=== PATIENT | female | born 1985 | race Caucasian/White ===

== ENCOUNTER 2023-06-05 23:33 | Emergency (ER) | payer MEDICAID ==
[2023-06-06 02:05] LABS: BASOPHILS # (AUTO) 0.1 10^3/uL (0.0-0.1); BASOPHILS % (AUTO) 1.1 %; EOSINOPHILS # (AUTO) 0.1 10^3/uL (0.0-0.7); EOSINOPHILS % (AUTO) 1.2 %; HCT - HEMATOCRIT 42.3 % (37.0-47.0); LYMPHOCYTES # (AUTO) 1.7 10^3/uL (1.5-3.5); LYMPHOCYTES % (AUTO) 25.8 %; MEAN CORPUSCULAR HEMOGLOBIN 32.2 pg (27.0-31.0); MEAN CORPUSCULAR HGB CONC 33.1 g/dL (32.0-36.0); MEAN CORPUSCULAR VOLUME 97.2 fL (81.0-99.0); MEAN PLATELET VOLUME 9.8 fL (7.9-10.8); MONOCYTES # (AUTO) 0.5 10^3/uL (0.0-1.0); MONOCYTES % (AUTO) 7.4 %; NEUTROPHILS # (AUTO) 4.2 10^3/uL (1.5-6.6); NEUTROPHILS % (AUTO) 64.3 %; PLT - PLATELET COUNT 203 10^3/uL (130-450); RED BLOOD COUNT 4.35 10^6/uL (4.20-5.40); RED CELL DISTRIBUTION WIDTH 11.9 % (12.0-15.0); WHITE BLOOD COUNT 6.5 x10^3/uL (4.8-10.8)
[2023-06-06 02:18] LABS: ALBUMIN 4.4 g/dL (3.2-5.5); ALBUMIN/GLOBULIN RATIO 1.6 (1.0-2.2); ALKALINE PHOSPHATASE 93 IU/L (42-121); ALT ALANINE AMINOTRANSFERASE 32 IU/L (10-60); AST ASPARTATE AMINOTRANSFERASE 22 IU/L (10-42); BILIRUBIN,TOTAL 0.3 mg/dL (0.2-1.0); BUN - BLOOD UREA NITROGEN 16 mg/dL (6-20); CALCIUM 9.7 mg/dL (8.5-10.3); CARBON DIOXIDE - CO2 24 mmol/L (21-32); CHLORIDE 107 mmol/L (101-111); CREATININE 0.7 mg/dL (0.6-1.3); GFR - MDRD 93 (>89); GLUCOSE 102 mg/dL (74-104); POTASSIUM 4.3 mmol/L (3.5-4.5); SODIUM 136 mmol/L (135-145); TOTAL PROTEIN 7.2 g/dL (6.4-8.9)
[2023-06-06 02:20] LABS: TROPONIN I HIGH SENSITIVITY < 2.3 ng/L (2.3-14.8)
[2023-06-06 03:36] VITALS: BP 144/96; O2SAT 99
--- NOTE | 2023-06-06 04:06 | ED Physician Documentation ---
PD HPI CHEST PAIN - Stated complaint Stated Complaint: L RIB PX - Chief complaint Chief Complaint: Cardiac - History obtained from History obtained from: Patient - Additional information Additional information: Patient is a 37-year-old female with no significant prior medical history presenting for evaluation of sharp pain in the left lower rib area that has been dull and constant for the past 4 days. She reports intermittently having some sharper jolts of pain but states that she has had some constant dullness there for 4 days. The pain does not radiate elsewhere. She also reports at times of feeling a discomfort of "bubbles" in her chest. She denies shortness of air. She denies worsening pain with taking deep breath or with exertion. She has not tried anything for her symptoms. She states that she has gotten away from a stressful situation and feels that her stress level is much better recently. Review of Systems Constitutional: denies: Fever Cardiac: reports: Chest pain / pressure Respiratory: denies: Dyspnea GI: denies: Abdominal Pain Musculoskeletal: denies: Extremity swelling PD PAST MEDICAL HISTORY - Past Medical History Past Medical History: No - Past Surgical History Past Surgical History: Yes General: Cholecystectomy, Hiatal hernia repair - Present Medications Home Medications: Ambulatory Orders Medication Instructions Recorded Confirmed hydrOXYzine HCL [Hydroxyzine HCl] 25 - 75 mg PO DAILY PRN 06/06/23 06/06/23 - Allergies Allergies/Adverse Reactions: Allergies Allergy/AdvReac Type Severity Reaction Status Date / Time metoclopramide [From Reglan] AdvReac Anxiety Verified 06/06/23 01:33 THC Allergy Anaphylaxis Uncoded 06/06/23 01:34 - Social History Does the pt smoke?: No Smoking Status: Never smoker Does the pt drink ETOH?: No ETOH Use: Wine Does the pt have substance abuse?: No - Immunizations Immunizations are current?: Yes - POLST Patient has POLST: No PD ED PE NORMAL - General General: Alert and oriented X 3, No acute distress, Well developed/nourished - HEENT HEENT: Atraumatic, Moist mucous membranes, Pharynx benign - Neck Neck: Supple, no meningeal sign - Cardiac Cardiac: RRR, No murmur, Strong equal pulses - Respiratory Respiratory: No respiratory distress, Clear bilaterally - Abdomen Abdomen: Soft, Non tender, Non distended - Derm Derm: Warm and dry - Extremities Extremities: No edema, No calf tenderness / cord - Neuro Neuro: Normal speech Results - Vitals Vitals: Vital Signs - 24 hr 06/06/23 06/06/23 01:24 03:29 Temperature 37.1 C 36.4 C L Heart Rate 76 78 Respiratory 18 16 Rate Blood Pressure 141/100 H 144/96 H O2 Saturation 98 99 Oxygen O2 Source Room air - EKG (time done) 0139 EKG releavant findings:: EKG personally interpreted by author of this note. Relevant findings are: Rate 79, normal sinus rhythm, no STEMI, no ST depressions - Labs Labs: Laboratory Tests 06/06/23 06/06/23 01:57 01:57 WBC 6.5 RBC 4.35 Hgb 14.0 Hct 42.3 MCV 97.2 MCH 32.2 H MCHC 33.1 RDW 11.9 L Plt Count 203 MPV 9.8 Neut # (Auto) 4.2 Lymph # (Auto) 1.7 [place] # (Auto) 0.5 Eos # (Auto) 0.1 Baso # (Auto) 0.1 Absolute Nucleated RBC 0.00 Nucleated RBC % 0.0 Sodium 136 Potassium 4.3 Chloride 107 Carbon Dioxide 24 Anion Gap 5.0 L BUN 16 Creatinine 0.7 Estimated GFR (MDRD) 93 Glucose 102 Calcium 9.7 Total Bilirubin 0.3 AST 22 ALT 32 Alkaline Phosphatase 93 Troponin I High Sens < 2.3 L Total Protein 7.2 Albumin 4.4 Globulin 2.8 Albumin/Globulin Ratio 1.6 PD Medical Decision Making - ED course Complexity details: reviewed results, re-evaluated patient, d/w patient ED course: Patient is a 37-year-old female presenting for evaluation of left-sided chest pain. It has been constant for 4 days with intermittent episodes of more sharp pain that are without exacerbating or alleviating factors. No other associated symptoms. PERC negative. EKG reviewed and is nonischemic. Labs including CBC, chemistry and troponin were obtained and reviewed and without significant findings. Chest x-ray which I reviewed is negative for cardiomegaly or effusion or pneumonia. There is an incidental finding of a pulmonary nodule which I explained to the patient. I counseled that she needs to follow-up with her primary care provider for a follow-up CT scan For better evaluation of this nodule and will need Periodic evaluation to ensure that it is not growing in size.Patient has no risk factors for ACS. Negative troponin with constant pain for 4 days and a nonischemic EKG. Thus I feel ACS is unlikely. No migratory symptoms to suggest a dissection. Patient counseled on need for close follow-up with primary care provider as well as concerning symptoms to return for. Departure - Departure Disposition: 01 Home, Self Care Clinical Impression: Left-sided chest pain, Pulmonary nodule Condition: Stable Instructions: ED Chest Pain Atypical Unkn Cause, ED Nodule Solitary Pulmonary Comments: Your chest x-ray shows a lung nodule in the left lung. You need follow-up with your primary care provider as you may need a CT scan to better evaluate this and for monitoring. Otherwise your testing today does not show any other abnormal findings. I do not see signs of a heart attack at this time. However again I do recommend close follow-up with your primary care provider regarding your symptoms as sometimes further testing may need to be done. Return to the emergency department with any worsening symptoms. Forms: PCP List Discharge Date/Time: 06/06/23 04:11
--- NOTE | 2023-06-06 08:30 | XRAY Report ---
PROCEDURE: Chest 1 View X-Ray INDICATIONS: L sided CP TECHNIQUE: One view of the chest was acquired. COMPARISON: None. FINDINGS: Surgical changes and devices: None. Lungs and pleura: No pleural effusions or pneumothorax. Lungs are clear. Possible left midlung zo ne nodule. Mediastinum: Mediastinal contours appear normal. Heart size is normal. Bones and chest wall: No suspicious bony lesions. Overlying soft tissues appear unremarkable. IMPRESSION: No acute cardiopulmonary process. Possible left midlung zone nodule. Recommend correlation with comparison studies or consider nonemerg ent, noncontrast chest CT for confirmation. Findings are concordant with preliminary interpretation provided by [facility]. Reviewed by: Rojas Ford on 06/06/2023 8:29 AM PDT Approved by: Rojas Ford on 06/06/2023 8:29 AM PDT Station ID: [id number]
== END 2023-06-06 04:11 | disposition home or self-care (01) ==
LOC: ED 23:33
DX: R91.1 Solitary pulmonary nodule (principal); R07.9 Chest pain, unspecified
CPT/HCPCS: 36415; 80053; 84484; 85025; 93005; 99283; 99284

== ENCOUNTER 2023-06-24 07:09 | Outpatient (CLI) | payer MEDICAID ==
[2023-06-24 12:04] LABS: BASOPHILS # (AUTO) 0.1 10^3/uL (0.0-0.1); BASOPHILS % (AUTO) 1.1 %; EOSINOPHILS # (AUTO) 0.1 10^3/uL (0.0-0.7); EOSINOPHILS % (AUTO) 1.3 %; HCT - HEMATOCRIT 42.5 % (37.0-47.0); HGB - HEMOGLOBIN 14.2 g/dL (12.0-16.0); LYMPHOCYTES # (AUTO) 1.4 10^3/uL (1.5-3.5); LYMPHOCYTES % (AUTO) 31.9 %; MEAN CORPUSCULAR HEMOGLOBIN 32.3 pg (27.0-31.0); MEAN CORPUSCULAR HGB CONC 33.4 g/dL (32.0-36.0); MEAN CORPUSCULAR VOLUME 96.8 fL (81.0-99.0); MEAN PLATELET VOLUME 10.6 fL (7.9-10.8); MONOCYTES # (AUTO) 0.4 10^3/uL (0.0-1.0); NEUTROPHILS # (AUTO) 2.5 10^3/uL (1.5-6.6); NEUTROPHILS % (AUTO) 56.7 %; PLT - PLATELET COUNT 219 10^3/uL (130-450); RED BLOOD COUNT 4.39 10^6/uL (4.20-5.40); RED CELL DISTRIBUTION WIDTH 11.9 % (12.0-15.0); WHITE BLOOD COUNT 4.5 x10^3/uL (4.8-10.8)
[2023-06-24 12:15] LABS: ALBUMIN 4.2 g/dL (3.2-5.5); ALBUMIN/GLOBULIN RATIO 1.7 (1.0-2.2); BILIRUBIN,TOTAL 0.6 mg/dL (0.2-1.0); CALCIUM 9.1 mg/dL (8.5-10.3); CREATININE 0.6 mg/dL (0.6-1.3); POTASSIUM 3.9 mmol/L (3.5-4.5); TOTAL PROTEIN 6.7 g/dL (6.4-8.9)
[2023-06-24 12:37] LABS: THYROID STIMULATING HORMONE 4.08 uIU/mL (0.34-5.60)
== END 2023-06-24 07:10 | disposition home or self-care (01) ==
LOC: LAB.N 07:09
PROVIDERS: ATTEND Physician Assistant
DX: F41.9 Anxiety disorder, unspecified (principal); R03.0 Elevated blood-pressure reading, without diagnosis of hypertension
CPT/HCPCS: 36415; 80050

== ENCOUNTER 2023-07-17 15:04 | Emergency (ER) | payer MEDICAID ==
[2023-07-17 15:16] VITALS: BP 128/89; O2SAT 99
[2023-07-17] MEDS ORDERED: IBUPROFEN 600 MG TABLET PO STA (15:18)
--- NOTE | 2023-07-17 15:21 | ED Physician Documentation ---
History of Present Illness - Stated complaint Stated Complaint: LT LEG INJ - Chief complaint Chief Complaint: Trauma Ext - Additonal information Additional information: Was wet except 37-year-old female presents emergency department for evaluation of acute left leg injury. Reports when walking in high heels on railroad tracks when her foot slipped from the high heels and she fell directly onto the [place] and on a railroad try. She has a superficial abrasion mid barnes but pain and difficulty bearing weight. She stubbed her toe on this left leg recently. No other history of injury. Tetanus is up-to-date. Review of Systems Constitutional: denies: Fever Skin: reports: Abrasion (s) Musculoskeletal: reports: Extremity pain PD PAST MEDICAL HISTORY - Past Medical History Past Medical History: No - Past Surgical History Past Surgical History: Yes General: Cholecystectomy, Hiatal hernia repair - Present Medications Home Medications: Ambulatory Orders Medication Instructions Recorded Confirmed hydrOXYzine HCL [Hydroxyzine HCl] 25 - 75 mg PO DAILY PRN 06/06/23 06/06/23 - Allergies Allergies/Adverse Reactions: Allergies Allergy/AdvReac Type Severity Reaction Status Date / Time metoclopramide [From Reglan] AdvReac Anxiety Verified 07/17/23 15:12 THC Allergy Anaphylaxis Uncoded 07/17/23 15:12 - Social History Does the pt smoke?: No Smoking Status: Never smoker Does the pt drink ETOH?: No Does the pt have substance abuse?: No - Immunizations Immunizations are current?: Yes - POLST Patient has POLST: No PD ED PE EXPANDED - General General: Alert, No acute distress - Extremities Extremities: Left leg (Superficial abrasion left lower anterior leg mid barnes. Mild surrounding ecchymosis. No obvious deformity. Normal flexion extension of the knee. Full range of motion of the ankle in all [place]. Significant tenderness elicited with even minor palpation over the abrasion) Results - Vitals Vitals: Vital Signs - 24 hr 07/17/23 15:08 Temperature 37.2 C Heart Rate 80 Respiratory 16 Rate Blood Pressure 128/89 H O2 Saturation 99 Oxygen O2 Source Room air - Rads (name of study) left tib fib xr Relevant Findings:: EMP independent interpretation of test (No acute fracture or dislocation.) PD Medical Decision Making - ED course Complexity details: reviewed results, re-evaluated patient, d/w patient ED course: 37-year-old female presents emergency department for evaluation of acute left lower leg injury sustained when she was walking near some railroad tracks in high heels and her foot slipped out of the heel she fell directly onto the railroad tie. She has a superficial abrasion mid [place]. No history of previous injury. Tetanus is up-to-date. On evaluation the leg is without deformity. Neurovascular intact. Most the tenderness was elicited directly over the site of the abrasion. An x-ray of the lower extremities interpreted by myself showed no acute fracture or dislocation. I clinically suspect she has a contusion or even a mild bone bruise. She is requesting crutches for ambulation which were prescribed. Otherwise we discussed conservative care measures of simple contusions to include Tylenol, Motrin and rest. The usual emergent return precautions otherwise discussed. Departure - Departure Disposition: 01 Home, Self Care Clinical Impression: Contusion of lower leg, left Qualifiers: Encounter type: initial encounter Qualified Code(s): S80.12XA - Contusion of left lower leg, initial encounter Condition: Stable Record reviewed to determine appropriate education?: Yes Instructions: ED Contusion Lower Ext Comments: Milad the x-ray of your lower leg does not show an obvious fracture. Because this area has very little padding in the way of muscle or adipose tissue, simple bruises can be quite painful. In general I recommend that you ice the bruise for 10 minutes 2-3 times a day. I recommend that you take Tylenol 500 mg twice daily or alternate with ibuprofen 600 mg taken with food also twice daily. In general most contusions or bruises will feel better after 7 to 10 days. Return to the ER if you find you are having new or worsening symptoms. Otherwise follow closely with your PCP.
--- NOTE | 2023-07-17 16:19 | XRAY Report ---
PROCEDURE: Tib/Fib LT INDICATIONS: pain mid barnes after fall TECHNIQUE: 2 views of the tibia and fibula were acquired. COMPARISON: None. FINDINGS: Bones: No fractures or dislocations. No suspicious bony lesions. Soft tissues: No suspicious soft tissue calcifications or masses. IMPRESSION: No acute bony abnormality. Reviewed by: Agapito Cameron MD on 07/17/2023 3:17 PM [place] Approved by: Agapito Cameron MD on 07/17/2023 3:17 PM [facility] Station ID: [id number]
== END 2023-07-17 15:58 | disposition home or self-care (01) ==
LOC: ED 15:04
DX: S80.812A Abrasion, left lower leg, initial encounter (principal); S80.12XA Contusion of left lower leg, initial encounter; W01.198A Fall on same level from slipping, tripping and stumbling with subsequent striking against other object, initial encounter; Y93.01 Activity, walking, marching and hiking; Y92.85 Railroad track as the place of occurrence of the external cause
CPT/HCPCS: 73590; 99283; A9270

== ENCOUNTER 2023-08-15 12:47 | Outpatient (CLI) | payer MEDICAID ==
--- NOTE | 2023-08-16 09:13 | Mammography Report ---
BILATERAL DIGITAL SCREENING MAMMOGRAM 3D/2D WITH AUGMENTATION: 08/15/2023 CLINICAL: Baseline exam. Routine screening. No prior exams were available for comparison. Both breasts are heterogeneously dense, which may obscure small masses (category c / 51-75% glandular tissue). Bilateral breast implants are present. No significant masses, calcifications, or other findings are seen in either breast. IMPRESSION: NEGATIVE There is no mammographic evidence of malignancy. A 1 year screening mammogram is recommended. Based on the Tyrer Cuzick model (a risk assessment model) the patients lifetime risk is 7.6% and her 10 year risk is 0.9%. According to the ACR, ACS, and NCCN guidelines, an annual breast MRI exam glynn g with mammogram is recommended if the patients lifetime risk is 20% or greater. This exam was interpreted at Station ID: [id number]. NOTE: For mammograms, a report in lay terms will be sent to the patient. Approximately 15% of breast malignancies will not be visualized mammographically. In the management of a palpable breast mass, a negative mammogram must not discourage biopsy of a clinically suspicious lesion. Electronically Signed By: Julia gil/sebastien:08/15/2023 16:59:57 letter sent: No_Letter ACR BI-RADS Category 1: Negative 3341F PARENCHYMAL PATTERN: (D) - The breast(s) demonstrate(s) heterogeneously dense fibroglandular isabela montez. BI-RADS CATEGORY: (1) - 1 Mammogram [id number] 1 year screening LATERALITY: (B)
== END 2023-08-15 12:48 | disposition home or self-care (01) ==
LOC: DI 12:47
DX: Z12.31 Encounter for screening mammogram for malignant neoplasm of breast (principal); R92.333 Mammographic heterogeneous density, bilateral breasts

== ENCOUNTER 2023-08-30 08:00 | Outpatient (CLI) | payer MEDICAID ==
[2023-08-30 21:51] LABS: CHLAMYDIA TRACHOMATIS DNA NEGATIVE (NEGATIVE); NEISSERIA GONORRHOEAE DNA NEGATIVE (NEGATIVE)
[2023-08-31 01:32] LABS: BACTERIAL VAGINOSIS DNA NEGATIVE (NEGATIVE); CANDIDA GLABRATA DNA NEGATIVE (NEGATIVE); CANDIDA GROUP DNA NEGATIVE (NEGATIVE); CANDIDA KRUSEI DNA NEGATIVE (NEGATIVE); TRICHOMONAS VAGINALIS DNA NEGATIVE (NEGATIVE)
== END 2023-08-30 23:59 | disposition home or self-care (01) ==
LOC: LAB.WC 08:00
PROVIDERS: ATTEND Nurse Practitioner
DX: R10.2 Pelvic and perineal pain (principal)
CPT/HCPCS: 81514; 81599; 87109; 87491; 87591; 87661

== ENCOUNTER 2023-09-07 16:58 | Outpatient (CLI) | payer MEDICAID ==
--- NOTE | 2023-09-08 13:30 | Ultrasound Report ---
PROCEDURE: Pelvic Limited INDICATIONS: LYMPHADENITIS TECHNIQUE: Real-time transabdominal scanning was performed of the inguinal regions COMPARISON: None. FINDINGS: There are bilateral small shotty inguinal lymph nodes, all of which measure 8 mm or less, none of whi ch are suspicious. IMPRESSION: Small benign-appearing bilateral inguinal lymph nodes. No suspicious lymph nodes. No other significan t findings. Reviewed by: Almas Meneses MD on 09/08/2023 1:28 PM PST Approved by: Almas Meneses MD on 09/08/2023 1:28 PM PST Station ID: [id number]
== END 2023-09-07 16:59 | disposition home or self-care (01) ==
LOC: DI 16:58
PROVIDERS: ATTEND Nurse Practitioner
DX: I88.9 Nonspecific lymphadenitis, unspecified (principal)

== ENCOUNTER 2023-09-09 08:00 | Outpatient (CLI) | payer MEDICAID ==
[2023-09-14 15:09] LABS: OVA + PARASITE EXAM Final report (.)
== END 2023-09-09 23:59 | disposition home or self-care (01) ==
LOC: LAB.N 08:00
PROVIDERS: ATTEND Physician Assistant
DX: R19.7 Diarrhea, unspecified (principal)
CPT/HCPCS: 83993; 87177; 87209; 87493

== ENCOUNTER 2023-10-30 06:44 | Outpatient (CLI) | payer MEDICAID ==
[2023-10-30 07:39] LABS: THYROID STIMULATING HORMONE 2.76 uIU/mL (0.34-5.60)
[2023-10-30 08:02] LABS: PROLACTIN 15.15 ng/mL
[2023-10-30 10:54] LABS: ESTIMATED AVERAGE GLUCOSE 88 mg/dL (70-100); HEMOGLOBIN A1c% 4.7 % (4.27-6.07)
[2023-10-31 11:09] LABS: PROGESTERONE 0.3 ng/mL (.)
== END 2023-10-30 06:45 | disposition home or self-care (01) ==
LOC: LAB 06:44
PROVIDERS: ATTEND Nurse Practitioner
DX: Z31.69 Encounter for other general counseling and advice on procreation (principal)
CPT/HCPCS: 36415; 82166; 82627; 82670; 83001; 83002; 83036; 83498; 84144; 84146; 84270; 84402; 84403; 84443

== ENCOUNTER 2023-11-22 10:15 | Outpatient (CLI) | payer MEDICAID ==
[2023-11-22 17:50] LABS: BASOPHILS # (AUTO) 0.1 10^3/uL (0.0-0.1); BASOPHILS % (AUTO) 0.9 %; EOSINOPHILS % (AUTO) 0.4 %; HGB - HEMOGLOBIN 15.1 g/dL (12.0-16.0); LYMPHOCYTES # (AUTO) 1.7 10^3/uL (1.5-3.5); LYMPHOCYTES % (AUTO) 23.5 %; MEAN CORPUSCULAR HGB CONC 33.6 g/dL (32.0-36.0); MEAN CORPUSCULAR VOLUME 95.3 fL (81.0-99.0); MEAN PLATELET VOLUME 9.8 fL (7.9-10.8); MONOCYTES # (AUTO) 0.5 10^3/uL (0.0-1.0); MONOCYTES % (AUTO) 6.7 %; NEUTROPHILS # (AUTO) 5.1 10^3/uL (1.5-6.6); NEUTROPHILS % (AUTO) 68.4 %; PLT - PLATELET COUNT 260 10^3/uL (130-450); RED BLOOD COUNT 4.72 10^6/uL (4.20-5.40); RED CELL DISTRIBUTION WIDTH 12.3 % (12.0-15.0); WHITE BLOOD COUNT 7.4 x10^3/uL (4.8-10.8)
[2023-11-22 18:10] LABS: ALBUMIN 4.7 g/dL (3.2-5.5); ALBUMIN/GLOBULIN RATIO 1.6 (1.0-2.2); ALKALINE PHOSPHATASE 70 IU/L (42-121); ALT ALANINE AMINOTRANSFERASE 19 IU/L (10-60); AMYLASE 43 U/L (28-100); AST ASPARTATE AMINOTRANSFERASE 18 IU/L (10-42); BILIRUBIN,TOTAL 0.6 mg/dL (0.2-1.0); BUN - BLOOD UREA NITROGEN 9 mg/dL (6-20); CALCIUM 9.6 mg/dL (8.5-10.3); CARBON DIOXIDE - CO2 23 mmol/L (21-32); CHLORIDE 106 mmol/L (101-111); CREATININE 0.7 mg/dL (0.6-1.3); GFR - MDRD 93 (>89); GLUCOSE 110 mg/dL (74-104); SODIUM 137 mmol/L (135-145); TOTAL PROTEIN 7.7 g/dL (6.4-8.9)
[2023-11-22 18:21] LABS: LIPASE < 10 U/L (11-82)
== END 2023-11-22 10:30 | disposition home or self-care (01) ==
LOC: LAB.N 10:15
PROVIDERS: ATTEND Specialist
DX: R11.2 Nausea with vomiting, unspecified (principal)
CPT/HCPCS: 36415; 80053; 82150; 83690; 85025

== ENCOUNTER 2023-12-12 08:00 | Outpatient (CLI) | payer MEDICAID ==
[2023-12-12 16:26] LABS: BILIRUBIN,URINE NEGATIVE (NEGATIVE); GLUCOSE, URINE (UA) NEGATIVE (NEGATIVE); KETONES,URINE (UA) NEGATIVE (NEGATIVE); LEUKOCYTE ESTERASE, URINE NEGATIVE (NEGATIVE); NITRITE,URINE POSITIVE (NEGATIVE); OCCULT BLOOD,URINE NEGATIVE (NEGATIVE); PROTEIN,URINE NEGATIVE (NEGATIVE); UROBILINOGEN,URINE 0.2 (NORMAL) E.U./dL (NORMAL)
[2023-12-12 16:45] LABS: BACTERIA,URINE Moderate /HPF (None Seen); CLARITY,URINE CLEAR (CLEAR); RBC,URINE None Seen /HPF (0-5); SQUAMOUS EPITHELIAL CELL,UR RARE Squamous (<= Few); WBC,URINE 0-3 /HPF (0-5)
== END 2023-12-12 23:59 | disposition home or self-care (01) ==
LOC: LAB.WC 08:00
PROVIDERS: ATTEND Obstetrics & Gynecology
DX: Z34.90 Encounter for supervision of normal pregnancy, unspecified, unspecified trimester (principal)
CPT/HCPCS: 81001; 87086; 87181